=== PATIENT | female | born 1990 | race Caucasian/White ===

== ENCOUNTER 2024-09-27 16:55 | Emergency (ER) | payer OTHER, SELFPAY ==
[2024-09-27 17:04] VITALS: BP 182/112
[2024-09-27 17:49] LABS: HCG, Serum Qualitative Screen Negative
[2024-09-27 17:51] LABS: Urine Albumin 3+ (Neg - Trace); Urine Bilirubin Negative (Negative); Urine Character Cloudy (Clear); Urine Color Red; Urine Glucose Negative (Negative); Urine Ketone Negative (Negative); Urine Leukocyte 2+ (Negative); Urine Nitrite Negative (Negative); Urine Occult Blood 4+ (Negative); Urine Urobilinogen Negative (Neg - 1+)
[2024-09-27 17:52] LABS: ALT (SGPT) 27 U/L (0-35); AST (SGOT) 23 U/L (14-36); Albumin 4.5 g/dl (3.5-5.0); Alkaline Phosphatase 95 U/L (38-126); Blood Urea Nitrogen 14 mg/dl (7-17); Carbon Dioxide 23 mmol/L (22-30); Chloride 110 mmol/L (98-107); Glucose 98 mg/dl (70-99); Potassium 4.3 mmol/L (3.5-5.1); Sodium 141 mmol/L (135-145); Total Bilirubin 0.4 mg/dl (0.2-1.3); Total Protein 6.8 g/dl (6.3-8.2); eGFR > 60.00
[2024-09-27 17:54] LABS: Hematocrit 37.2 % (37.0-47.0); Hemoglobin 11.5 g/dL (12.0-16.0); Mean Corp Hgb Conc. 30.9 g/dL (33.0-37.0); Mean Corpuscular Hgb 20.8 pg (27.0-31.0); Mean Corpuscular Volume 67.1 fL (81.0-99.0); Mean Platelet Volume 8.5 fL (7.4-10.4); Platelet Count 343 10^3/uL (130-400); Red Blood Cell Count 5.54 10^6/uL (4.20-5.40); Red Cell Dist. Width 22.5 % (11.5-14.5); White Blood Cell Count 11.1 10^3/uL (4.8-10.8)
[2024-09-27 18:18] LABS: Urine Squamous Cell 0-2 /LPF (Few)
[2024-09-27 18:19] LABS: Urine Bacteria Few (Negative); Urine Red Blood Cell >100 /HPF (0-2); Urine White Cell 16-20 /HPF (0-5)
[2024-09-27 18:47] LABS: % Basophils 0.6 % (0-2); % Eosinophils 0.9 % (0-6); % Immature Granulocytes 0.4 % (0-0.5); % Monocytes 4.5 % (1.7-9.3); % Neutrophils 74.6 % (42.2-75.2); Absolute Basophils 0.1 10^3/uL (0-0.2); Absolute Eosinophils 0.1 10^3/uL (0-0.7); Absolute Lymphocytes 2.1 10^3/uL (1.2-3.4); Absolute Monocytes 0.5 10^3/uL (0.1-0.6); Absolute Neutrophils 8.3 10^3/uL (1.4-6.5); Nucleated Red Blood Cells % 0 %
[2024-09-27 20:13] VITALS: BMI 49.6
[2024-09-27 20:25] VITALS: BP 130/99
--- NOTE | 2024-09-27 20:45 | ED.GENMED ---
History of Present Illness
General
Chief Complaint: Vaginal Bleeding
Source: patient
Exam Limitations: none
Time Seen by Provider: 09/27/24 20:19
History of Present Illness
History of Present Illness:
34-year-old female presents complaining of vaginal bleeding for 1 week but started heavily bleeding with large clots today. She is changing a pad every hour. She feels slightly lightheaded. She notes mild pain. No fever. Dates no chance of
. No other complaints at this time
Phy Exam
Physical Exam
Physical Exam:
General: Well-appearing female no acute respiratory distress
HEENT: Normocephalic atraumatic
Heart: Regular rate and rhythm no murmurs
Lungs: Clear no wheeze
Abdomen soft nontender nondistended
Pelvic exam: This was performed with female nurse, Claire as a fence supervisor in the room. There is a mild amount of blood in the vaginal canal with a moderate size clot. No significant bleeding from the cervix noted at this time
Course
Orders/Labs/Results
Orders:
Orders
09/27/24 17:09
EKG [Electrocardiogram (*1)] Urgent
Reason for Study: Vertigo / Dizzy
Test Result ONCE
09/27/24 17:10
EKG- Treatment ONCE
09/27/24 17:32
CMP [Comprehensive Metabolic Panel] Urgent
Complete Blood Count/With Diff Urgent
HCG, Serum Qualitative Screen Urgent
Comment: Notify provider if positive test present
Urinalysis Reflex To Culture Urgent
Date Specimen was Collected: 09/27/24
Time Specimen was Collected: 17:09
Urine Microscopic Reflex Cult Urgent
Urine Culture Urgent
CHARLIE Source: U
Specimen Description:
Date Specimen was Collected: 09/27/24
Time Specimen was Collected: 17:09
09/27/24 20:25
Type+Screen Urgent
09/27/24 20:28
US Pelvis W Transvag Combined Urgent
Comment:
Reason For Exam: bleeding
09/27/24 21:00
ABO2 Urgent
BBK Wristband Number:
Associate notified that ABO2 has been ordered: [id number]
Date: 09/27/24
Time: 20:56
Cvicu Nurse ID: [id number]
Abnormal Lab Results
09/27/24
17:32
WBC 11.1 H 10^3/uL
(4.8-10.8)
RBC 5.54 H 10^6/uL
(4.20-5.40)
Hgb 11.5 L g/dL
(12.0-16.0)
MCV 67.1 L fL
(81.0-99.0)
MCH 20.8 L pg
(27.0-31.0)
MCHC 30.9 L g/dL
(33.0-37.0)
RDW 22.5 H %
(11.5-14.5)
Absolute Neuts (auto) 8.3 H 10^3/uL
(1.4-6.5)
Lymphocytes % 19.0 L %
(20.5-51.1)
Chloride 110 H mmol/L
(98-107)
Ur Occult Blood Reflex 4+ A
(Negative)
Leukocyte Esterase Rfl 2+ A
(Negative)
Urine RBC >100 A /HPF
(0-2)
Urine WBC (Reflex) 16-20 A /HPF
(0-5)
Urine Bacteria (Reflex) Few A
(Negative)
Urine Albumin (Reflex) 3+ A
(Neg - Trace)
09/27/24 17:32
09/27/24 17:32
Vital Signs
Initial and Last Documented VS:
Initial Vital Signs
Temp Pulse Resp BP Pulse Ox
98.6 F 98 16 182/112 100
09/27/24 17:04 09/27/24 17:04 09/27/24 17:04 09/27/24 17:04 09/27/24 17:04
Last Documented Vital Signs
Temp Pulse Resp BP Pulse Ox
98.6 F 98 16 130/99 100
09/27/24 17:04 09/27/24 17:04 09/27/24 17:04 09/27/24 20:25 09/27/24 17:04
MDM/Problems Addressed
Differential Diagnosis Includes:
Heavy vaginal bleeding. Stable vital signs. Will check labs.
Pelvic ultrasound pending. Pelvic exam shows clot in vaginal canal but no significant active bleeding
*Critical Care Note
Total Time (30-74mins, 75-104mins- exclusive of procedures): Not Applicable
Update Note
Update Note:
Ultrasound shows likely hemorrhagic cyst of the right ovary. No other abnormal findings. Vital signs remained stable hemoglobin acceptable. Recommend she follow-up with her microfilm operator for further evaluation
ED Attending Note
-
Portions of this chart may have been created with voice recognition software.� Occasional wrong word or��sound alike� substitutions may have occurred due to the inherent limitations of voice recognition software.
Discharge Plan
Departure
Patient Disposition: Home (Routine Discharge)
Date of Disposition: 09/27/24
Time of Disposition: 22:57
Patient with high blood pressure during this ER visit?: No
Discharge Problem:
Abnormal vaginal bleeding
Instructions: Heavy Periods (DC)
Referrals:
Patito,Armando D, DO [Family Provider] -
Activity Restrictions/Additional Instructions:
Please return here for worsening symptoms. Follow-up with your ALUMINUM FABRICATION SUPERVISOR otherwise
Interventions
Interventions:
*Risk Screen - Suicide Last Done: 09/27/24 17:04
*General Assessment Last Done: 09/27/24 20:13
*Neglect/Abuse Screening Last Done: 09/27/24 17:04
*ED- Fall Risk Assessment Last Done: 09/27/24 20:13
*ED COVID-19 Vaccine History Last Done: 09/27/24 20:13
ED-Female Genitourinary Assessment Last Done: 09/27/24 20:13
Discharge Date and Time
Print Language: THAI
[2024-09-27 23:16] VITALS: BP 137/82
== END 2024-09-27 23:24 | disposition home or self-care (01) ==
LOC: EMR 16:55
PROVIDERS: EMERGENCY PHYSICIAN Student in an Organized Health Care Education/Training Program; FAMILY PHYSICIAN Family Medicine
DX: N93.9 Abnormal uterine and vaginal bleeding, unspecified (principal); R42 Dizziness and giddiness
CPT/HCPCS: 99284; 76830; 76856; 80053; 81003; 81015; 84703; 85025; 86850; 86900; 86901; 87086; 93005